=== PATIENT | male | born 1990 | race Caucasian/White ===

== ENCOUNTER 2022-07-06 14:19 | Emergency (ER) | payer OTHER ==
[~2022-07-06] VITALS: Ht 177.8 cm; Wt 108.0 kg
[2022-07-06] MEDS ORDERED: DOXYCYCLINE HY100 MG PO (15:57)
== END 2022-07-06 16:11 | disposition home or self-care (01) ==
LOC: FSED 14:28
DX: R30.0 Dysuria (principal); N34.1 Nonspecific urethritis
CPT/HCPCS: 81003; 99283

== ENCOUNTER 2023-03-05 00:18 | Emergency (ER) | payer OTHER ==
[~2023-03-05] VITALS: Ht 177.8 cm; Wt 97.5 kg
[~2023-03-05 00:18] MED LIST: BENZONATATE100 MG PO; DOXYCYCLINE HY100 MG PO; FLONASE ALLERG9.9 ML INH; IBUPROFEN800 MG PO; MUCINEX DM ER1 EACH PO
[2023-03-05 00:30] VITALS: O2SAT 97
[2023-03-05] MEDS ORDERED: LIDOCAINE HCL 1% LOCAL INJ 20 ML VIAL INJ ONE (01:00)
[2023-03-05] MEDS ORDERED: DIPHTH/TETANUS/ACEL. PERTUSSIS 0.5 ML SYR IM ONE (01:00)
[2023-03-05] MEDS ORDERED: TETANUS/DIPHTHERIA TOX ADULT 0.5 ML SYR IM ONE (01:15)
[2023-03-05] MEDS ORDERED: NEOMYCIN/POLYMYX/BACITR OINT 0.9 GM PKT ONE (01:22)
[2023-03-05] MEDS ORDERED: TETANUS/DIPHTHERIA TOX ADULT 0.5 ML SYR ONE (01:22)
[2023-03-05] MEDS ORDERED: LIDOCAINE HCL 1% LOCAL INJ 20 ML VIAL ONE (01:22)
[2023-03-05] MEDS ORDERED: CEPHALEXIN500 MG PO (01:23)
[2023-03-05] MEDS ORDERED: BACITRACIN/POLYMYXIN 30 GM OINT TP SCH (01:30)
== END 2023-03-05 01:55 | disposition home or self-care (01) ==
LOC: FSED 00:25
DX: S01.112A Laceration without foreign body of left eyelid and periocular area, initial encounter (principal); W21.07XA Struck by softball, initial encounter; Y93.64 Activity, baseball; Y92.328 Other athletic field as the place of occurrence of the external cause
CPT/HCPCS: 12011; 90471; 90714; 99283; J2001

== ENCOUNTER 2024-12-16 13:08 | Emergency (ER) | payer BC ==
[~2024-12-16] VITALS: Ht 177.8 cm; Wt 115.3 kg
[~2024-12-16 13:08] MED LIST changes: +CEPHALEXIN500 MG PO
[2024-12-16 13:17] VITALS: TEMP 98.3
[2024-12-16] MEDS ORDERED: SODIUM CHLORIDE 0.9% 100 ML ONE (14:34)
[2024-12-16] MEDS ORDERED: IOPAMIDOL 370 MG/ML 100 ML INFUS..BTL INJ ONE (14:34)
[2024-12-16] MEDS: SODIUM CHLORIDE 0.9% 1000ML 1,000 ML IV ONE (14:51)
[2024-12-16] MEDS: ASPIRIN 325 MG TAB PO ONE (16:08)
[2024-12-16 16:46] VITALS: PULSE 89; RESP 13; O2SAT 99
== END 2024-12-16 17:00 | disposition other institution (70) ==
LOC: FSED 13:18
DX: R20.0 Anesthesia of skin (principal); R20.2 Paresthesia of skin; I67.82 Cerebral ischemia; I65.23 Occlusion and stenosis of bilateral carotid arteries; R74.8 Abnormal levels of other serum enzymes
CPT/HCPCS: 70450; 70496; 80048; 80076; 80307; 81003; 82553; 84484; 85025; 85610; 93005; 99284; J7030; J7050; Q9967